=== PATIENT | female | born 1940 | race Caucasian/White ===

== ENCOUNTER 2019-01-07 11:31 | Emergency (ER) | payer OTHER, MEDICAID ==
[~2019-01-07] VITALS: Ht 170.2 cm; Wt 93.0 kg
[2019-01-07] MEDS ORDERED: FOSAMAX 70 MG T70 MG PO (11:42)
[2019-01-07] MEDS ORDERED: LASIX 40 MG TAB40 M2 PO (11:42)
[2019-01-07] MEDS ORDERED: LOPRESSOR50 PO (11:42)
[2019-01-07] MEDS ORDERED: BENAZEPRIL HCL20 MG PO (11:42)
[2019-01-07] MEDS ORDERED: FLEXERIL PO (11:43)
[2019-01-07] MEDS ORDERED: LIDODERM1 EACH TRANSDERM (11:43)
[2019-01-07] MEDS ORDERED: TYLENOL325 MG PO (11:43)
[2019-01-07] MEDS ORDERED: CARDIZEM CD120 MG PO (11:43)
[2019-01-07] MEDS ORDERED: MIRALAX17 GM PO (11:44)
[2019-01-07] MEDS ORDERED: MILK OF MA2400 MG/11 PO (11:44)
[2019-01-07] MEDS ORDERED: VITAMINC500 PO (11:44)
[2019-01-07] MEDS ORDERED: NORCO 10-325 T1 EACH PO (11:45)
[2019-01-07] MEDS ORDERED: IPRATROPIU0.2 MG/1 M INH (11:45)
[2019-01-07] MEDS ORDERED: COUMADIN 4 MG TA4 M1 PO (11:45)
[2019-01-07 12:08] LABS: ABSOLUTE EOSINOPHILS 0.1 thou/uL (0.0-0.7); ABSOLUTE LYMPHOCYTES 1.2 thou/uL (0.8-5.3); ABSOLUTE MONOCYTES 0.7 thou/uL (0.0-1.2); ABSOLUTE NEUTROPHILS 8.8 thou/uL (1.6-8.1); BASOPHILS 0.3 %; EOSINOPHILS 0.7 %; HEMATOCRIT 35.8 % (37.0-47.0); HEMOGLOBIN 11.8 gm/dL (12.0-15.0); LYMPHOCYTES 10.8 %; MCH 32.4 pg (26.0-34.0); MONOCYTES 6.6 %; MPV 6.5 fl. (7.2-11.1); NUCLEATED RBCS 0 /100WBC; PLATELET COUNT* 361 thou/uL (150-400); POLYS 81.6 %; RBC 3.65 mil/uL (4.20-5.00); RDW-CV 16.8 % (10.5-14.5); WBC 10.7 thou/uL (4.0-11.0)
[2019-01-07 12:24] LABS: APTT 39.6 Seconds (25.0-31.3); INR 2.6; PROTIME 26.3 Seconds (9.20-11.50)
[2019-01-07 12:27] LABS: ALBUMIN 3.1 g/dL (3.4-5.0); CREATININE 1.2 mg/dL (0.6-1.3); POTASSIUM 4.4 mmol/L (3.5-5.1); TOTAL BILIRUBIN 0.3 mg/dL (<0.1-1.0); TOTAL PROTEIN 6.7 g/dL (6.4-8.2)
[2019-01-07 14:00] VITALS: BP 125/82
== END 2019-01-07 14:57 | disposition home or self-care (01) ==
LOC: M.ERS 11:31
PROVIDERS: Physician Assistant
DX: S09.8XXA Other specified injuries of head, initial encounter (principal); E86.0 Dehydration; I10 Essential (primary) hypertension; I48.91 Unspecified atrial fibrillation; Z88.2 Allergy status to sulfonamides; Z88.8 Allergy status to other drugs, medicaments and biological substances; W01.0XXA Fall on same level from slipping, tripping and stumbling without subsequent striking against object, initial encounter; Y93.89 Activity, other specified; Y92.89 Other specified places as the place of occurrence of the external cause; Y99.8 Other external cause status

== ENCOUNTER 2019-10-09 12:45 | Inpatient (IN) | payer OTHER, MEDICAID ==
[~2019-10-09] VITALS: Ht 170.2 cm; Wt 95.3 kg
[~2019-10-09 12:45] MED LIST: BENAZEPRIL HCL20 MG PO; CARDIZEM CD120 MG PO; COUMADIN 2.5MG2.5 M1 PO; FLEXERIL PO; FOSAMAX 70 MG T70 MG PO; IPRATROPIU0.2 MG/1 M INH; LASIX 40 MG TAB40 M2 PO; LIDODERM1 EACH TRANSDERM; METOPROLOL TA37.5 MG PO; MILK OF MA2400 MG/11 PO; MIRALAX17 GM PO; NORCO 5-325 TA1 EAC1 PO; TYLENOL325 MG PO; VITAMINC500 PO
[2019-10-09 12:47] VITALS: BP 96/42
[2019-10-09] MEDS ORDERED: ZOFRAN4 MG PO (12:52)
[2019-10-09] MEDS ORDERED: MELATONIN10 M3 PO (12:54)
[2019-10-09] MEDS ORDERED: COUMADIN 1MG TAB1 M1 PO (12:56)
[2019-10-09] MEDS ORDERED: SINGULAIR 10 MG10 MG PO (12:56)
[2019-10-09 13:59] LABS: ABSOLUTE BASOPHILS 0.1 thou/uL (0.0-0.2); ABSOLUTE LYMPHOCYTES 1.5 thou/uL (0.8-5.3); ABSOLUTE MONOCYTES 0.8 thou/uL (0.0-1.2); ABSOLUTE NEUTROPHILS 10.7 thou/uL (1.6-8.1); BASOPHILS 0.5 %; EOSINOPHILS 0.1 %; HEMATOCRIT 42.7 % (37.0-47.0); HEMOGLOBIN 14.2 gm/dL (12.0-15.0); LYMPHOCYTES 11.2 %; MCH 32.1 pg (26.0-34.0); MCHC 33.1 g/dL (28.0-37.0); MCV 96.8 fL (80.0-100.0); MONOCYTES 6.3 %; MPV 7.6 fl. (7.2-11.1); NUCLEATED RBCS 0 /100WBC; PLATELET COUNT* 293 thou/uL (150-400); POLYS 81.9 %; RBC 4.42 mil/uL (4.20-5.00); RDW-CV 13.7 % (10.5-14.5)
[2019-10-09 14:09] LABS: INR 2.3; PROTIME 22.8 Seconds (9.20-11.50)
[2019-10-09 14:10] LABS: CALCIUM 9.3 mg/dL (8.5-10.1); CREATININE 1.2 mg/dL (0.6-1.3); POTASSIUM 4.4 mmol/L (3.5-5.1)
[2019-10-09 14:21] LABS: ALBUMIN 3.5 g/dL (3.4-5.0); TOTAL BILIRUBIN 0.5 mg/dL (<0.1-1.0); TOTAL PROTEIN 7.3 g/dL (6.4-8.2)
--- NOTE | 2019-10-09 15:42 | EKG ---
[place] [address] ELECTROCARDIOGRAM REPORT Name: DXAA MARIE Room: [place] [address] ADM IN M.R.#: [id number] Admission: 10/09/19 Attend Phys: Sunil Servin MD Discharge: Date of : 38 Report #: [id number] THIS REPORT FOR: //name// [facility] ED Test Date: 2019-10-09 Test Time: 12:55:19 Pat Name: DAXA MARIE Department: Room: [facility] Gender: F Buttonholer: [facility] : 1940 Requested By: Sudhir Taveras Order Number: [id number] MD: Mak Pride Measurements Intervals [place] Rate: 81 P: AR: QRS: -35 QRSD: 128 T: 47 QT: 394 QTc: 458 Interpretive Statements Atrial fibrillation Left bundle branch block No previous ECG available for comparison Electronically Signed On 10-09-2019 15:42:24 EXECUTIVE RELATIONS SPECIALIST by Mak Pride [email or web address] <ELECTRONICALLY SIGNED> By: Mak Pride MD, [facility] 10/09/19 1542 [id number] Mak Pride MD, FACC /EPI
[2019-10-09 16:24] LABS: URINE BILIRUBIN NEGATIVE (Negative); URINE BLOOD NEGATIVE (Negative); URINE CLARITY CLEAR; URINE COLOR YELLOW; URINE GLUCOSE-RANDOM NEGATIVE (Negative); URINE KETONES NEGATIVE (Negative); URINE LEUKOCYTES-REFLEX 2+ (Negative); URINE NITRITE-REFLEX POSITIVE (Negative); URINE PROTEIN NEGATIVE (Negative); URINE SPECIFIC GRAVITY 1.015 (1.005-1.030); URINE UROBILINOGEN 0.2 E.U./dl (0.2-1.0)
[2019-10-09 16:35] VITALS: BP 122/82
[2019-10-09 16:38] LABS: SQUAMOUS 0-3 Few /LPF (0-3)
[2019-10-09 16:39] LABS: BACTERIA-REFLEX >30 Many /HPF (None Seen); URINE RBC 0-2 Rare /HPF (0-2); URINE WBC-REFLEX 6-15 Few /HPF (0-5)
[2019-10-09 16:40] LABS: CASTS None Seen /LPF (None Seen); CRYSTALS None Seen /LPF (None Seen); MUCUS None Seen strn/LPF (None Seen)
--- NOTE | 2019-10-09 17:11 | NUR ---
SOON PT BROUGHT TO UNIT MRI CAME TO GET PT FOR STAT MRI. MRI SCREENING FORM COMPLETED BY LAUREN PADRON FROM MRI. PT OFF UNIT.
--- NOTE | 2019-10-09 18:05 | NUR ---
PT RETURN ROM MRI.
--- NOTE | 2019-10-09 18:25 | NUR ---
CALLED DR. GRIMES TO INFORM OF MRI COMPLETED AND NIH SCORE.
--- NOTE | 2019-10-09 18:40 | NUR ---
PT HAS ONLY THE SLIGHTEST OF UNEVINESS WHEN SMILING. PT PASSED PAULETTE SWALLOW EVALUATION.
[2019-10-09 20:00] VITALS: BP 143/74
[2019-10-10] VITALS: BP 123/86
--- NOTE | 2019-10-10 00:36 | NUR ---
PT GIVEN MEDS CRUSHED IN APPLE SAUCE. PT IMMEDIATELY BEGAN TO CHOKE. SUCTION AT BEDSIDE. PT REPORTS FEELING BETTER. VSS. LS REMAIN THE SAME INITIAL ASSESSMENT. PORTABLE CXR ORDERED FOR AM. WCTM CLOSELY
[2019-10-10 04:00] VITALS: BP 156/102
--- NOTE | 2019-10-10 05:04 | NUR ---
PT IS RESTING COMFORTABLY AT THIS TIME. LS STILL UNCHANGED ON RA. AFIB ON THE MONITOR HR BETWEEN 100-127. PT IS STILL DROWSY BUT ABLE TO REPSPOND WHEN SPOKE TO. WILL CONTINUE TO MONITOR.
[2019-10-10 05:09] LABS: ABSOLUTE MONOCYTES 0.9 thou/uL (0.0-1.2); ABSOLUTE NEUTROPHILS 10.4 thou/uL (1.6-8.1); BASOPHILS 0.2 %; EOSINOPHILS 0.2 %; HEMATOCRIT 43.9 % (37.0-47.0); HEMOGLOBIN 14.8 gm/dL (12.0-15.0); LYMPHOCYTES 15.1 %; MCH 32.7 pg (26.0-34.0); MCHC 33.7 g/dL (28.0-37.0); MCV 96.9 fL (80.0-100.0); MPV 7.1 fl. (7.2-11.1); NUCLEATED RBCS 0 /100WBC; PLATELET COUNT* 308 thou/uL (150-400); POLYS 77.5 %; RBC 4.53 mil/uL (4.20-5.00); RDW-CV 13.4 % (10.5-14.5); WBC 13.4 thou/uL (4.0-11.0)
[2019-10-10 05:21] LABS: CHOLESTEROL 180 mg/dL (<200); HDL CHOLESTEROL 44 mg/dL (>40); LDL CHOLESTEROL 120 mg/dL (<100); TC:HDL 4.1 Ratio (Not establshd); TRIGLYCERIDE 82 mg/dL (<150); VLDL 16 mg/dL (<40)
[2019-10-10 05:22] LABS: SERUM ASSESSMENT Clear
[2019-10-10 05:27] LABS: MAGNESIUM 1.8 mg/dL (1.8-2.4)
--- NOTE | 2019-10-10 05:40 | NUR ---
PT HAS HAD TELEMETRY LEADS REPLACED 3XS. PT IS CONFUSED AND IS CONTINUING TO REMOVE LEADS.
[2019-10-10 05:42] LABS: INR 2.5; PROTIME 25.2 Seconds (9.20-11.50)
[2019-10-10 07:20] LABS: ESR (SEDRATE) 30 mm/hr (0-30)
[2019-10-10 08:17] VITALS: BP 155/95
[2019-10-10 12:00] VITALS: BP 152/100
--- NOTE | 2019-10-10 13:05 | NUR ---
VSS, ASSUMED CARE IN THE AM, ASSESSMENT PERFORMED AND CHARTED, FALL PRECAUTIONS IN PLACE AND CALL LIGHT IN REACH, PT IS AFIB ON MONITOR RA AND IS UP WITH 2 ASSIST, PT HAS SHOULDER PAIN, PT GOAL IS TO WORK WITH PT/OT/SP COMPLETE SWALLOW, WILL FOLLOW WITH PLAN OF CARE.
--- NOTE | 2019-10-10 15:03 | NUR ---
Pt out of the room when CM went to assess, will f/u later
[2019-10-10 16:00] VITALS: BP 154/90
--- NOTE | 2019-10-10 16:28 | 2DMMODE ---
[place] [address] 2 D/M-MODE ECHOCARDIOGRAM Name: DAXA MARIE Room: [address] IN [facility]#: [id number] Admission: 10/09/19 Attend Phys: Sunil Servin MD Discharge: Date of : 38 Date of Service: 10/10/19 1627 Report #: [id number] THIS REPORT FOR: //name// APPROVED REPORT Study performed: 10/10/2019 10:28:21 EXAM: Comprehensive 2D, Doppler, and color-flow Echocardiogram Patient Location: In-Patient Room #: [facility] Status: routine BSA: 2.02 HR: 124 bpm BP: 155/95 mmHg Rhythm: Atrial Fibrillation Other Information Study Quality: Good Indications CVA/TIA Atrial Fibrillation Echo Enhancing Agent Indication: Rule out Shunt Agent(s) / Amount(s) Used: Agitated Saline 10 cc 2D Dimensions IVSd: 17.31 (7-11mm) LVOT Diam: 20.00 (18-24mm) LVDd: 40.38 mm PWd: 11.73 (7-11mm) Ascending Ao: 36.84 (22-36mm) LVDs: 21.73 (25-40mm) Aortic Root: 35.05 mm Volumes Left Atrial Volume (Systole) LA ESV Index: 57.60 mL/m2 Aortic Valve AoV Peak Dustin.: 1.31 m/s AO Peak Gr.: 6.89 mmHg LVOT Max P.03 mmHg AO Mean Gr.: 3.94 mmHg LVOT Mean P.66 mmHg LVOT Max V: 0.87 m/s AO V2 VTI: 18.83 cm LVOT Mean V: 0.59 m/s BRUCE (VTI): 2.21 cm2 LVOT V1 VTI: 13.23 [place] [address] 2 D/M-MODE ECHOCARDIOGRAM Name: DAXA MARIE Room: [address] IN .R.#: [id number] Admission: 10/09/19 Attend Phys: Sunil Servin MD Discharge: Date of : 38 Date of Service: 10/10/19 1627 Report #: [id number] Pulmonary Valve PV Peak Dustin.: 1.09 m/s PV Peak Gr.: 4.73 mmHg Tricuspid Valve RAP Estimate: 5.00 mmHg TR Peak Gr.: 34.13 mmHg RVSP: 39.00 mmHg PA Pressure: 39.00 mmHg Left Ventricle The left ventricle is normal size. There is normal LV segmental wall motion. Mild to moderate concentric left ventricular hypertrophy. Left ventricular systolic function is normal. LVEF is 60-65%. This study is not technically sufficient to allow evaluation of the LV diastolic function due to atrial fibrillation. Right Ventricle The right ventricle is normal size. The right ventricular systolic function is normal. Atria Left atrium is severely dilated. Interatrial septum is intact without evidence of ASD or PFO. Right atrium is mildly dilated. Aortic Valve Mild aortic valve sclerosis. No aortic regurgitation is present. There is no aortic valvular stenosis. Mitral Valve There is mitral annular calcification. Trace mitral regurgitation. No evidence of mitral valve stenosis. Tricuspid Valve The tricuspid valve is normal in structure. Mild tricuspid regurgitation. The RVSP is 50-55 mmHg. Pulmonic Valve The pulmonary valve is normal in structure. There is no pulmonic valvular regurgitation. Great Vessels The aortic root is normal in size. IVC is normal in size and collapses >50% with inspiration. Pericardium There is no [place] [address] 2 D/M-MODE ECHOCARDIOGRAM Name: DAXA MARIE Trevor Room: [address]#: [id number] Admission: 10/09/19 Attend Phys: Sunil Servin MD Discharge: Date of : 38 Date of Service: 10/10/19 1627 Report #: [id number] <Conclusion> The left ventricle is normal size. Mild to moderate concentric left ventricular hypertrophy. Left ventricular systolic function is normal. LVEF is 60-65%. This study is not technically sufficient to allow evaluation of the LV diastolic function due to atrial fibrillation. Interatrial septum is intact without evidence of ASD or PFO. Left atrium is severely dilated. Right atrium is mildly dilated. Trace mitral regurgitation. Mild tricuspid regurgitation. The RVSP is 50-55 mmHg. IVC is normal in size and collapses >50% with inspiration. <ELECTRONICALLY SIGNED> By: Arron Christina MD, FACC 10/10/19 1627 [id number] Arron Christina MD, FACC /INF
[2019-10-10 20:00] VITALS: BP 143/74
[2019-10-11] VITALS: BP 137/94
[2019-10-11 02:06] LABS: GLYCOHEMOGLOBIN (HGB A1C) 6.2 % (4.8-5.6)
[2019-10-11 04:00] VITALS: BP 144/99
[2019-10-11 05:03] LABS: ABSOLUTE LYMPHOCYTES 1.4 thou/uL (0.8-5.3); ABSOLUTE MONOCYTES 1.2 thou/uL (0.0-1.2); ABSOLUTE NEUTROPHILS 8.9 thou/uL (1.6-8.1); BASOPHILS 0.3 %; EOSINOPHILS 0.4 %; HEMATOCRIT 44.8 % (37.0-47.0); HEMOGLOBIN 14.8 gm/dL (12.0-15.0); MCH 32.1 pg (26.0-34.0); MCHC 32.9 g/dL (28.0-37.0); MCV 97.5 fL (80.0-100.0); MONOCYTES 10.1 %; MPV 7.3 fl. (7.2-11.1); NUCLEATED RBCS 0 /100WBC; PLATELET COUNT* 267 thou/uL (150-400); POLYS 77.2 %; RDW-CV 13.5 % (10.5-14.5); WBC 11.6 thou/uL (4.0-11.0)
[2019-10-11 05:14] LABS: INR 2.8; PROTIME 27.5 Seconds (9.20-11.50)
[2019-10-11 05:17] LABS: CALCIUM 8.9 mg/dL (8.5-10.1); CREATININE 1.1 mg/dL (0.6-1.3); POTASSIUM 3.9 mmol/L (3.5-5.1)
--- NOTE | 2019-10-11 05:35 | NUR ---
PT IS LETHARGIC, OX2. 2L O2 NC. AFIB ON MONITOR WITH ELEVATED HR ON CARDIZEM GTT. PT IS NPO.HOB ELEVATED. NS AT 50. PT IS INCONTINENT OF BLADDER. DAUGHTER IS AT BEDSIDE. HOURLY ROUNDING. CALL LIGHT IN REACH
[2019-10-11 07:00] VITALS: BP 136/86
--- NOTE | 2019-10-11 09:25 | NUR ---
INITAL ASSESSMENT COMPLETED CHARTED. VSS. NIH=12. TRACING AFIB ON MONITOR. SEE COMPUTER CHARTING FOR FURTHER DETAIL. Q2 TURNS FOR SKIN INTEGRITY. HOURLY ROUNDING AND FALL PRECAUTIONS IN PLACE FOR PT SAFETY. CLWR. FAMILY AT BEDSIDE
[2019-10-11 11:48] VITALS: BP 145/86
--- NOTE | 2019-10-11 15:44 | NUR ---
CM spoke with son in room. Pt is resides at [facility]. Pt primarily uses a wc, but also has a walker. Meals and cleaning provided. Acute rehab consult placed. Following.
[2019-10-11 17:03] VITALS: BP 135/75
[2019-10-11 20:00] VITALS: BP 154/55
[2019-10-12] VITALS: BP 135/76
[2019-10-12 04:00] VITALS: BP 150/77
[2019-10-12 05:46] LABS: INR 2.9; PROTIME 28.3 Seconds (9.20-11.50)
[2019-10-12 08:00] VITALS: BP 157/89
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
--- NOTE | 2019-10-12 10:08 | NUR ---
MIDLINE CATHETER LINE INSERTED BY INFUSION NURSE PER DR ORDER. D5W AND IV ABX ADMINISTERED. MOUTH CARE GIVEN TO PT BY THIS NURSE WITH HOB ELEVATED AT 90 DEGREE. PT LEFT FLOOR AT 1009 FOR MRI. WILL CONITINUE TO MONITOR
--- NOTE | 2019-10-12 10:16 | NUR ---
CCONSULTED FOR MIDLINE. RIGHT UPPER ARM ASSESSED WITH ULTRASOUND AND CEPHALIC IDENTIFIED AND MARKED. 8CM MIDLINE PLACED PER PROTOCOL. GOOD BRISK BLOOD RETURN AND EASY FLUSH. LINE SECURED AND RELEASED FOR USE. ARM 44CM AT INSERTION SITE.
[2019-10-12 12:17] VITALS: BP 132/92
--- NOTE | 2019-10-12 13:36 | CON ---
[address] [address] CONSULTATION Name: DAXA MARIE Room: [address] IN M.R.#: [id number] Admission: 10/09/19 Attend Phys: Sunil Servin MD Discharge: Date of : 39 Report #: [id number] THIS REPORT FOR: //name// CC: Pj Servin DATE OF SERVICE: 10/10/2019 HISTORY OF PRESENT ILLNESS: This is an 79-year-old female patient who was seen by me this morning. I talked to Dr. Servin subsequently. This patient lives in [place]. The reason she lives in [place] is because of ambulation difficulty. Her mentation was rather okay according to the son. She has a known history of anticoagulation. She has taken Coumadin for a long time. From last several days, she did not take Coumadin. It is not clear how long she did not take Coumadin, but it is at least last several days. When she came in, her INR was still 2.3, which is at the lower level and looks like she had multiple strokes. The strokes are in the distribution of the posterior cerebral artery as well as posterior inferior cerebellar artery. So far, there is no evidence of hydrocephalus. She had two imaging studies of the vessels and none of them are of optimal quality. It does show occlusion of both posterior cerebral artery, which is unusual, but I am not sure about rest of the vessels. Anterior circulation looks intact. REVIEW OF SYSTEMS: Indicates that this patient has a history of atrial fibrillation. I do not know what her INR runs in the baseline. I am trying to get that records from the [place]. She does have a history of hypertension, CHF, and arthritis. She denies any history for vision problem, although she did not do very well on my examination on her vision. She does have a history of hypertension. She denies any ENT, cardiac or respiratory symptoms. She did have some nausea. She denies any , musculoskeletal, constitutional, dermatological, hematological, psychiatric, throat, allergic symptom associated with present symptomatology. PAST MEDICAL HISTORY: Positive for atrial fibrillation. FAMILY HISTORY: Negative for any early age stroke. SOCIAL HISTORY: She lives in [place]. PHYSICAL EXAMINATION: Indicates that she is alert. She is responsive. Her memory and fund of knowledge looks poor. I tried to do the cranial nerve examination. I do not know what her baseline is, but she did not do very well with the visual field. She does appear to be somewhat weak on the right side. She said she can feel the sensation. Tone looks symmetrical. She does not have any cerebellar sign. I could not look at the patient's fundus. 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 She has no thyroid mass, no carotid bruit. Pulses are palpable. She does have atrial fibrillation. No respiratory difficulty or rhonchi was noticed. Blood pressure is 128/90, respiration is 19, pulse is 96, temperature is 98.5. LABORATORY DATA: Her white count is 13.4 and is elevated to some extent. Her GFR is 53. Her MRIs and CT angiogram is reviewed and is described as above. 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 This happened in spite of being on anticoagulation. She is not any TPA or any interventional candidate and probably never was. The question is why she has CVA in spite of anticoagulation. I suspect that she was more anticoagulated and the level of anticoagulation went down after she did not take the Coumadin, but still she had the stroke even after being on INR of 2.3, which is unusual, but can occur. I will await the other testing. We will get the record from [place] and then talk to her about her other options. <ELECTRONICALLY SIGNED> By: Oneil Jin MD 10/12/19 1336 [id number] 10Oneil Jin MD /nt
--- NOTE | 2019-10-12 14:21 | NUR ---
CM spoke with Pt's dtr, clarified that Pt is actually a LTC resident at [facility], but has been on the [facility] wait list. CM explained that Pt will be eligible for skilled not acute rehab. Dtr in agreement with POC. Updated Rosy at [facility] and faxed referral info
[2019-10-12 16:27] VITALS: BP 148/76
--- NOTE | 2019-10-12 16:27 | NUR ---
pt remains npo during shift. occupational therapy and physical therapy worked with pt today. pt has had poor urine putput during the day. pt was bladder scanned at 1630 residualt of 999cc of urine on scan. nurse required a straight cath order from will continue to monitor.
--- NOTE | 2019-10-12 19:03 | NUR ---
VICTOR HUGOELY CATHETER INSERTED AT 1900 ORDERED
[2019-10-12 20:00] VITALS: BP 149/89
[2019-10-13] VITALS: BP 159/94
[2019-10-13 04:00] VITALS: BP 149/85
--- NOTE | 2019-10-13 05:04 | NUR ---
PT ALERT AND ABLE TO MAKE NEEDS KNOWN. DOES HAVE SOME CONFUSION AND KEPT ASKING DAUGHTER TO LEAVE BUT DAUGHTER WAS GOOD ABOUT REASSURANCE TO PT. NO C/O PAIN NOTED. DOES HAVE WET GURGLE REQUIRING FREQUENT SUCTIONING. MOUTH CARE PREFORMED FOR DRINESS. DAUGHTER AT BEDSIDE, PT CURRENTLY ASLEEP WITH BED ALRAM ON AND CALL LIGHT WITHIN REACH.
[2019-10-13 05:19] LABS: INR 3.3; PROTIME 32.5 Seconds (9.20-11.50)
[2019-10-13 08:00] VITALS: BP 138/69
--- NOTE | 2019-10-13 10:24 | NUR ---
ASSUMED PT CARE, REPORT RECEIVED FROM NURSE. PT IS AOX3, LYING IN BED. VSS. CARDIZEM DRIP INFUSING AT 20 CC PER HOUR. IV FLUID INFUSING AT 80 CC PER HOUR. IV ROCEPHIN GIVEN. ASA SUPP APPLIED. LIDOCAINE PATCH O LEFT SHOULDER. Q2TURN. ACCUCHECK. MALLORY PATENT. NPO STATUS MAINTAINED. CALL LIGHT AT REACH. NO COMPLAINT. WILL CONITNUE TO MONITOR
[2019-10-13 10:31] LABS: ALBUMIN 2.9 g/dL (3.4-5.0); CALCIUM 8.7 mg/dL (8.5-10.1); POTASSIUM 3.9 mmol/L (3.5-5.1); TOTAL BILIRUBIN 0.5 mg/dL (<0.1-1.0); TOTAL PROTEIN 6.5 g/dL (6.4-8.2)
[2019-10-13 12:05] VITALS: BP 134/76
[2019-10-13 16:11] VITALS: BP 158/74
[2019-10-13 20:00] VITALS: BP 137/57
[2019-10-14] VITALS: BP 143/76
[2019-10-14 04:00] VITALS: BP 150/98
--- NOTE | 2019-10-14 04:47 | NUR ---
PT HAS BEEN ABLE TO COUGH AND CLEAR DRAINAGE AND IS SOUNDING MUCH BETTER. DID HAVE A COUPLE OF EPISODES OF DE-SATS INTO THE 80'S WHICH REQUIRED RE-POSITIONING, COACHING TO COUGH AND SUCTIONING WITH IMPROVMENT BACK INTO THE 90'S. R FA IV NO LONGER WORKING, INSERTED NEW IV TO L WRIST. NO C/O PAIN NOTED BY PT. BED ALRAM ON AND CALL LIGHT WITHIN REACH, DAUGHTER AT BEDSIDE.
[2019-10-14 05:35] LABS: ABSOLUTE LYMPHOCYTES 0.9 thou/uL (0.8-5.3); ABSOLUTE MONOCYTES 1.1 thou/uL (0.0-1.2); ABSOLUTE NEUTROPHILS 10.9 thou/uL (1.6-8.1); BASOPHILS 0.2 %; EOSINOPHILS 0.1 %; HEMATOCRIT 44.5 % (37.0-47.0); HEMOGLOBIN 14.3 gm/dL (12.0-15.0); LYMPHOCYTES 6.8 %; MCHC 32.2 g/dL (28.0-37.0); MCV 99.5 fL (80.0-100.0); MONOCYTES 8.5 %; MPV 7.9 fl. (7.2-11.1); NUCLEATED RBCS 0 /100WBC; PLATELET COUNT* 246 thou/uL (150-400); POLYS 84.4 %; RBC 4.47 mil/uL (4.20-5.00); RDW-CV 13.3 % (10.5-14.5); WBC 12.9 thou/uL (4.0-11.0)
[2019-10-14 05:44] LABS: ALBUMIN 2.8 g/dL (3.4-5.0); CALCIUM 8.6 mg/dL (8.5-10.1); TOTAL BILIRUBIN 0.6 mg/dL (<0.1-1.0); TOTAL PROTEIN 6.6 g/dL (6.4-8.2)
[2019-10-14 05:48] LABS: PROTIME 83.7 Seconds (9.20-11.50)
[2019-10-14 05:51] LABS: INR 8.8
[2019-10-14 06:19] LABS: PROTIME 38.1 Seconds (9.20-11.50)
[2019-10-14 06:23] LABS: INR 3.9
[2019-10-14 08:00] VITALS: BP 121/50
[2019-10-14 12:00] VITALS: BP 143/83
--- NOTE | 2019-10-14 12:10 | NUR ---
ASSUMED PT CARE REPORT RECEIVED FROM NURSE PT IS AOX3, LYING IN BED, SUCTIONNG PERFORMED. ON 5 L NC. O2 SATURATION IS 100%. OXYGEN DECREASED TO 4 L NC, TO APPROACH HOME OXYGEN LEVEL. O2 SAT AT 4 L NC IS 98%. VSS. EXCEPT INCREASED HR IN 140S. CARDIOLOGY CONSULTED. CARDIO STOPPED CARDIZEM DIRP WHICH WAS SLOWLY TITRATED BY NURSE UNTIL STOPPED. THEN DIGOXIN AND METOPROLOL GIVNE NEEDED. PT TRACING AFIB ON LOTUS NOTES DEVELOPER. WILL MONITOR HR THROUGHOUT THE SHIFT. Q2TURN. HOB ELEVATED AT 60% OR MORE AT ALL TIME. NPO STATUS MAINTAINED. INR 3.9 , HOSPITALIST AWARE. CARDIO AGREES TO GIVEN DOSE OF VIT K TO PREP PT FOR PEG TUBE PLACEMENT TOMORROW . WILL COMMUNICATE CARDIO INPUT TO HOSPITALIST. PT HAS A TEMP AT 1200. TYLENOL SUPP ORDERED WILL GIVE. IV FLUID INFUSING AT 80 PER HOUR. IV ABX GIVEN. CALL LIGHT AT REACH. WILL CONTINUE TO MONITOR
[2019-10-14 13:40] LABS: INR 3.6; PROTIME 35.5 Seconds (9.20-11.50)
--- NOTE | 2019-10-14 14:08 | NUR ---
VITAMIN K GIVEN AT 1350 SCHEDULE. TYLENOL SUPP GIVEN FOR HIGH TEMP OF 101
--- NOTE | 2019-10-14 18:43 | NUR ---
PT MORE LETHARGIC AND LESS INTERACTIVE TODAY. STAT CT OF HEAD ORDERED. NO ACUTE BLEEDING, REMAINS AFIB ON HOSPITAL CODER HEART RATE 120S. METOPROLOL AND DIGOXIN GIVEN SCHEDULED.
[2019-10-14 20:00] VITALS: BP 174/103
[2019-10-15] VITALS (35 sets, daily range): BP systolic 105–178; BP diastolic 56–149
[2019-10-15 01:04] LABS: BE 2.5 mmol/L (-2 to +3); PO2 68.8 mmHg (75.0-100.0)
--- NOTE | 2019-10-15 01:05 | NUR ---
PT TEMPERATURE REMAINS ELEVATED PER AXILLARY. AWAITING TYLENOL SUPPOSITORY, AIDE PLACED COOL RAG OVER HEAD AND REMOVED BLANKETS TO COOL PT.
[2019-10-15 01:17] LABS: PCO2 83.7 mmHg (35.0-45.0)
--- NOTE | 2019-10-15 02:00 | NUR ---
PT TRANSFERRED TO ICU PER ORDER BY PHYSICIAN. PT O2 SATURATION MAINTAINED AT 88% DESPITE SUCTIONING AND HI FLOW NC. RT PLACED PT ON 60L HEATED/HUMIDIFIED AND BROUGHT O2 UP TO 93% ORDER OBTAINED FOR STAT ABG. ABG CRITICAL RESULTS CALLED TO PHYSICIAN WO ORDERED CONSULTATION WITH [facility], TRANSFER TO ICU AND POSSIBLE INTUBATION. PT TRANSFERRED TO ICU AND PLACED ON BIPAP. REPORT,CHART AND MEDS GIVEN TO ROSSY RN/ICU WITHOUT FURTHER QUESTIONS.
--- NOTE | 2019-10-15 03:29 | NUR ---
RECIEVED PT FROM TELE AND PUT PT TO ROOM 3.CONNECTED TO TRANSLATOR DEAF WITH AFIB,HR AT 120BPM.CARDIZEM STARTED AT 10MG/HR.TALKED TO DTR AND SAID NO EXTRA MEASURE IF PT ARREST LIKE CPR.DTR SAID PT DOESN'T WANT CPR.DTR AGREED FOR INTUBATION ONLY IF NEEDED AND PROGNOSIS IS GOOD.CONNECTED TO BIPAP AT 100%.ABDOMINAL DISTENTION NOTED,NGT INSERTED.UPDATE GIVEN TO DTR AND SON.
[2019-10-15 04:08] LABS: BE -0.7 mmol/L (-2 to +3); PO2 117.2 mmHg (75.0-100.0)
[2019-10-15 04:09] LABS: pH 7.299 (7.340-7.450)
[2019-10-15 06:01] LABS: HEMATOCRIT 46.2 % (37.0-47.0); HEMOGLOBIN 14.6 gm/dL (12.0-15.0); MCH 31.9 pg (26.0-34.0); MCHC 31.7 g/dL (28.0-37.0); MCV 100.7 fL (80.0-100.0); NUCLEATED RBCS 0 /100WBC; PLATELET COUNT* 200 thou/uL (150-400); RBC 4.59 mil/uL (4.20-5.00); WBC 14.4 thou/uL (4.0-11.0)
[2019-10-15 06:13] LABS: CALCIUM 8.9 mg/dL (8.5-10.1); CREATININE 1.6 mg/dL (0.6-1.3); POTASSIUM 4.3 mmol/L (3.5-5.1)
[2019-10-15 06:18] LABS: ALBUMIN 2.6 g/dL (3.4-5.0); TOTAL BILIRUBIN 0.6 mg/dL (<0.1-1.0); TOTAL PROTEIN 6.7 g/dL (6.4-8.2)
[2019-10-15 06:27] LABS: INR 2.2; PROTIME 21.5 Seconds (9.20-11.50)
[2019-10-15 06:39] LABS: ABSOLUTE LYMPHOCYTES 1.4 thou/uL (0.8-5.3); ABSOLUTE MONOCYTES 0.1 thou/uL (0.0-1.2); ABSOLUTE NEUTROPHILS 12.8 thou/uL (1.6-8.1); METAMYELOCYTES 1 %; PLATELET ESTIMATE ADEQUATE
--- NOTE | 2019-10-15 06:59 | NUR ---
ABG RESULT INFORMED HIMS,PT FOR INTUBATION BUT DPOA(SON) DARRIN AND DTR REFUSED.TO BE CLARIFY WELL WHAT WILL BE THE CODE STATUS.CT HEAD DONE.CARDIZEM DRIP HOLD, HR 90'S TO 100'S.
--- NOTE | 2019-10-15 11:45 | NUR ---
ICU rounds: Continue care for a few more days, reassess on Tuesday. Pt on bipap. Pt made a DNR, intibate pending prognosis. Tube feeds started. Nephro and ID consulted. Pt satting fine, working to titrate o2. Comfortable, but drowsy. Pt not opening eyes. Following.
[2019-10-15 13:36] LABS: BE 0.1 mmol/L (-2 to +3); PCO2 42.5 mmHg (35.0-45.0); PO2 89.3 mmHg (75.0-100.0)
[2019-10-15 15:31] LABS: INR 1.5; PROTIME 14.7 Seconds (9.20-11.50)
[2019-10-15 16:17] LABS: BE -1.1 mmol/L (-2 to +3); PCO2 41.1 mmHg (35.0-45.0); PO2 76.3 mmHg (75.0-100.0); pH 7.382 (7.340-7.450)
--- NOTE | 2019-10-15 16:24 | CON ---
[address] [address] CONSULTATION Name: FRANKDAXA R Room: [address] ADM IN M.R.#: [id number] Admission: 10/09/19 Attend Phys: Sunil Servin MD Discharge: Date of : 38 Report #: [id number] THIS REPORT FOR: //name// CC: Pj Servin DATE OF SERVICE: 10/14/2019 CARDIOLOGY CONSULTATION HISTORY OF PRESENT ILLNESS: The patient is an 79-year-old single white female, who I was asked to see in the hospital today because of atrial fibrillation. The history is obtained from the chart as well as her daughter who is present. The patient has a history of permanent atrial fibrillation. It initially started apparently in 2008 in [facility]. She apparently was cardioverted 3 times, but remained in AFib. It was decided to aim for rate control and anticoagulation. She has done well since that time. She apparently fractured her femur last year and had surgery. She has now been in [facility], undergoing rehabilitation. Apparently a week ago, she had difficulty with vision. She was brought here to [place]. She felt nauseated and lightheaded. She was felt to have a stroke. She was seen by Neurology. On admission, her INR was 2.3 and felt to be therapeutic. Her workup so far, she had an echocardiogram done last week that showed left ventricular hypertrophy, ejection fraction 60%. No evidence of a shunt, biatrial enlargement, mild mitral regurgitation. She did undergo extensive neuro workup, including MRA of the carotid arteries that showed no flow limiting stenosis. 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 MRI of the head showed acute infarction in multiple areas. Her chest x-ray on admission showed decreased aeration in the bases, heart size appeared prominent. LABORATORY WORK: Sodium 148, BUN 17, creatinine 1.0, glucose 130. Troponin 0.06. Cholesterol 180, triglycerides 82, HDL 44, LDL 120. After her admission, her INR actually went up to 8.8, it is now 3.9. White blood cell count of 12.9, hemoglobin 14.3. IMPRESSION AND RECOMMENDATIONS: 1. Permanent atrial fibrillation. Aim for rate control. The patient previously was on metoprolol and diltiazem. She is currently n.p.o. I therefore recommend IV metoprolol and IV digoxin to control the rate. I would hold anticoagulation at this time for PEG tube. 2. Previous history of warfarin. The patient currently being transitioned to novel oral anticoagulant. INR noted to be elevated. Prior to performing percutaneous endoscopic gastrostomy tube placement, I would consider either vitamin K or FFP. 3. Obesity. 4. Hypertension. The patient previously had been on an ROLAND inhibitor, [place] [address] CONSULTATION Name: DAXA MARIE Room: [address] IN [facility].#: [id number] Admission: 10/09/19 Attend Phys: Sunil Servin MD Discharge: Date of : 38 Report #: [id number] beta-juan antonio, calcium-juan antonio. 5. Hyperlipidemia. Because of her stroke, I would aim for an LDL of less than 100 using a statin drug. 6. Glucose intolerance. <ELECTRONICALLY SIGNED> By: Kem Roblero MD, [facility] 10/15/19 1624 [id number] [id number] Theresa Roblero MD, FACC /nt
--- NOTE | 2019-10-15 19:59 | NUR ---
PT GRIMACING TO PAIN, HARDLY OPENING HER EYES, NODS HER HEAD TO YES OR NO QUESTIONS. BIPAP SUPPORT CONTD, SETTINGS CHANGED PER TRAIN SYSTEM OPERATOR. PT IS DNR STATUS, FAMILY DISCUSSED WITH DR CUBA. TUBE FEEDING STARTED AT 20 MLS/HR, TOLERATING WELL. HEPARIN STARTED AT 1000 U/HR PER DR CUBA. VSS. EKG SHOWS A FIB/ SA. PT COUGHING THICK SECRETIONS, SUCTIONED AT TIMES. UOP-250 MLS.
[2019-10-16] VITALS (22 sets, daily range): BP systolic 111–188; BP diastolic 61–113
[2019-10-16 05:50] LABS: ABSOLUTE EOSINOPHILS 0.1 thou/uL (0.0-0.7); ABSOLUTE LYMPHOCYTES 1.1 thou/uL (0.8-5.3); ABSOLUTE MONOCYTES 0.8 thou/uL (0.0-1.2); ABSOLUTE NEUTROPHILS 8.4 thou/uL (1.6-8.1); BASOPHILS 0.4 %; HEMATOCRIT 38.2 % (37.0-47.0); LYMPHOCYTES 10.3 %; MCH 32.8 pg (26.0-34.0); MCHC 33.1 g/dL (28.0-37.0); MCV 99.2 fL (80.0-100.0); MPV 8.2 fl. (7.2-11.1); NUCLEATED RBCS 0 /100WBC; PLATELET COUNT* 169 thou/uL (150-400); POLYS 80.3 %; RBC 3.85 mil/uL (4.20-5.00); RDW-CV 13.5 % (10.5-14.5); WBC 10.5 thou/uL (4.0-11.0)
--- NOTE | 2019-10-16 05:53 | NUR ---
ASSUMED CARE AT 1900H, ON BIPAP AT 50%.PT COUGHED THEN VOMITED EARLY THIS MORNING.HOLD FEEDING AND PUT ON NC AND TOLERATED.PT NOW ON 5LPM AND NO DISTRESS.PT DOESN'T WANT TO BE TOUCH AND SHE'S SLAPPING AND KICKING US, EVERY NOW AND THEN WE ORIENT PT THEN SHE'S CALMER AND COOPERATIVE.NO BLEEDING AND STILL ON HEPARIN DRIP.CONTINUE MONITORING AND TOWARD GOALS.
[2019-10-16 06:05] LABS: BE 2.2 mmol/L (-2 to +3); PO2 96.9 mmHg (75.0-100.0); pH 7.328 (7.340-7.450)
[2019-10-16 06:07] LABS: PCO2 57.6 mmHg (35.0-45.0)
[2019-10-16 06:08] LABS: ALBUMIN 2.1 g/dL (3.4-5.0); CALCIUM 8.4 mg/dL (8.5-10.1); CREATININE 1.3 mg/dL (0.6-1.3); HEMOGLOBIN 12.6 gm/dL (12.0-15.0); POTASSIUM 3.5 mmol/L (3.5-5.1); TOTAL BILIRUBIN 0.6 mg/dL (<0.1-1.0); TOTAL PROTEIN 5.7 g/dL (6.4-8.2)
[2019-10-16 06:21] LABS: PREALBUMIN 10.1 mg/dL (18.0-35.7)
--- NOTE | 2019-10-16 06:27 | NUR ---
PT PULLED HER NGT.SHE MORE RESPONSIVE VERBALLY AND STRONGER.NGT NOT REINSERTED,PT MIGHT MOVE HER HEAD CONSTANTLY WHILE INSERTION AND SHE MIGHT PULL IT AGAIN.
[2019-10-16 06:50] LABS: INR 1.3; PROTIME 13.2 Seconds (9.20-11.50)
--- NOTE | 2019-10-16 07:57 | CON ---
[address] [address] CONSULTATION Name: FRANKDAXA Trevor Room: [address] ADM IN M.R.#: [id number] Admission: 10/09/19 Attend Phys: Sunil Servin MD Discharge: Date of : 38 Report #: [id number] THIS REPORT FOR: //name// CC: Pj Servin DATE OF SERVICE: 10/15/2019 INFECTIOUS DISEASE CONSULTATION ATTENDING PHYSICIAN: Dr. Riley. REASON FOR EVALUATION: Aspiration pneumonitis. HISTORY OF PRESENT ILLNESS: Chart reviewed, patient examined. This is an 79-year-old with history of hypertension, atrial fibrillation, presented on the 3rd with the left-sided facial droopiness, underwent evaluation, was ultimately found to have a posterior infarct. Since that time; however, she has deteriorated now and requires ICU level of care. Noted serial x-rays ultimately today showed diffuse pneumonitis suggestive of aspiration. At this point, she is on BiPAP. She is not responsive. Hemodynamically, she is not overtly unstable. She has had recent fevers as high as 101.9 earlier this morning. ALLERGIES: LISTED SULFA, GABAPENTIN. MEDICATIONS: Currently include vancomycin, diltiazem, digoxin, acetaminophen, metoprolol, Zosyn, famotidine, atorvastatin, aspirin, niacin, malic acid, ascorbic acid. PAST MEDICAL HISTORY: As described above, recent stroke, now with significant deficits, hypertension, atrial fibrillation, history of cardiomyopathy with history congestive heart failure, arthritis. SOCIAL HISTORY: Nonsmoker, no ethanol, no illicit drug use. FAMILY HISTORY: Noncontributory. REVIEW OF SYSTEMS: Not obtainable. PHYSICAL EXAMINATION: GENERAL: She is supine in Intensive Care Unit. She does have the BiPAP in place, really nonresponsive at this point. NECK: Appears to be supple. VITAL SIGNS: Temperature most recently 101.9, pulse 97, respirations 20, blood pressure 117/74. SKIN: Warm, dry, gets extensive contused areas both the upper extremities, [place] [address] CONSULTATION Name: DAXA MARIE Room: [address] IN [facility]#: [id number] Admission: 10/09/19 Attend Phys: Sunil Servin MD Discharge: Date of : 39 Report #: [id number] somewhat increased fluid throughout. LUNGS: Scattered coarse breath sounds. HEART: Distant, tachycardic. I do not appreciate a murmur. ABDOMEN: There are no peritoneal signs, soft. GENITOURINARY: Deferred. RECTAL: Deferred. LABORATORY DATA: Prealbumin of 11.5. Most recent CBC: White count of 14.4, H and H 14.6 and 46.2, platelets of 200. Protime 21.5, INR of 2.2. TSH of 0.815, free T4 of 1.04. Lactic acid of 1.7. Sodium 151, potassium 4.3, chloride 113, bicarbonate is 32, anion gap of 6, BUN and creatinine 24 and 1.6, glucose of 161. LFTs unremarkable. Albumin of 2.6, total protein of 6.7. Estimated GFR of 31. Chest x-ray, extensive left mid and lower lobe infiltrate. ASSESSMENT: Pneumonitis, complicated by respiratory failure in patient with a significant stroke. At this point, seemingly has deficits. We will continue the empiric broad-spectrum therapy. Remains very critically ill at this point. Noted their family is in discussions may not want really aggressive measures at this point given her diminished prognosis. We will follow. <ELECTRONICALLY SIGNED> By: Buddy Carcamo MD 10/16/19 [id number] Carcamo MD /nt
--- NOTE | 2019-10-16 11:16 | NUR ---
ICU rounds: Pt DNR status updated. PICC and TPN today. Pt family and team reassessing plan of care tomorrow pending appropriateness and decision regarding dc planning for SNF vs hospice. SW/CM to continue to follow to assist with safe dc planning.
--- NOTE | 2019-10-16 14:53 | NUR ---
RIGHT BASILIC VESSEL ACCESSED FOR 5 TONGAN TRIPLE PICC. LINE PRE-TRIMMED TO 44 CM AND ATTEMPTED TO ADVANCE TO THE DISTAL SVC BUT UNABLE TO ADVANCE PAST THE 22 CM DARRIN. LINE PULLED BACK AND READVANCED SEVERAL TIMES BUT RESISTANCE MET AT THE 22CM DARRIN. LINE REMOVED AND PRESSURE HELD WITH PRESSURE DRESSING APPLIED. LEFT CEPHALIC VESSEL ACCESSED FOR 5 TONGAN TRIPLE PICC. LINE PRE-TRIMMED TO 43CM AND ADVANCED TO THE ZERO DARRIN WITH NO RESISTANCE MET. UPPER ARM CIRCUMFERENCE ABOVE INSERTION SITE= 15 1/5". SHERLOCK MAGNET AND 3CG UNABLE TO CONFIRM TIP TERMINATION DUE TO A-FIB. POST-PROCEDURE CXR CHOWS TIP TERMINATES AT THE CAVOATRIAL JUNCTION. GUIDEWIRE REOMVED, LINE FLUSHED, AND INSERTION SITE DRESSED. REPORT GIVEN TO RAINA PADRON.
--- NOTE | 2019-10-16 16:37 | CON ---
[address] [address] CONSULTATION Name: DAXA MARIE Trevor Room: [address] IN M.R.#: [id number] Admission: 10/09/19 Attend Phys: Sunil Servin MD Discharge: Date of : 39 Report #: [id number] THIS REPORT FOR: //name// CC: Pj Servin DATE OF SERVICE: 10/15/2019 NEPHROLOGY CONSULTATION The patient in ICU, bed 3 at [facility]. I am asked to see this 79-year-old female at the request of Dr. Barber for hypernatremia and acute kidney injury. HISTORY OF PRESENT ILLNESS: The patient was admitted to [facility] on 10/09 of this year with left facial droop, headaches and decreased vision. She had decreased vision in her left eye, accompanied with nausea and vomiting. She was found to have an acute CVA, dysphagia and dehydration. She has a history of chronic AFib and is on chronic anticoagulation. She also carried a history of hypertension and pulmonary edema. She also has aspiration pneumonia. The patient was on the rehab unit, but her medical condition declined. She had some aspiration. She needed airway protection and needed transfer to the medical floor. PAST MEDICAL HISTORY: Hypertension, AFib, CHF and arthritis. FAMILY HISTORY: Noncontributory at her age. SOCIAL HISTORY: No tobacco, no alcohol, no recreational drugs. Very devoted family is at the bedside. ALLERGIES: ADHESIVE TAPE, GABAPENTIN AND SULFA. MEDICATIONS: Present in-hospital medications show that she is on famotidine 20 mg IV daily, vancomycin IV piggyback daily, metoprolol 50 mg per tube every 12 hours, diltiazem 30 mg per tube every 6 hours. She is receiving some free water. At this time, just started her tube feed. She has had digoxin discontinued as well as metoprolol and the former dose discontinued in favor of present dose. She is on piperacillin IV piggyback and Niaspan daily 500 mg, Singulair 10 mg daily, lidocaine patch topically daily, aspirin 81 mg daily, ascorbic acid, vitamin C 500 mg daily, senna 1 tablet at bedtime, hydralazine 50 mg q.6 hours p.r.n. and other p.r.n. meds including acetaminophen, melatonin, hydrocodone [place] [address] CONSULTATION Name: DAXA MARIE Room: [address]#: [id number] Admission: 10/09/19 Attend Phys: Sunil Servin MD Discharge: Date of : 39 Report #: [id number] REVIEW OF SYSTEMS: Cannot be provided by the patient. She is quite sleepy and is presently on BiPAP and does barely open her eyes to exam. PHYSICAL EXAMINATION: VITAL SIGNS: She has a temperature of 36.9 axillary. She has a heart rate in the 100 range. Respirations are 20, BP presently is 118/74. Her intake and output 1810 in, 500 out. HEENT: Pupils do react to light. NECK: Supple. CHEST: Shows some diminished breathe sounds and rhonchi. She has some upper airway noises as well. HEART: Irregular rhythm. No rubs, no gallops. ABDOMEN: Obese, soft, nontender, positive bowel sounds. EXTREMITIES: Show no edema, soft calves. NEUROLOGIC: No new focal or acute changes. She has had her recent CVA. LABORATORY DATA: Shows a white count of 14,400, hemoglobin 14.6, hematocrit 46.2, platelets 200,000. ESR was 30 on 10/10. Recent blood gas; pH 7.38, pCO2 of 41, pO2 of 76. This is on BiPAP at 50% FiO2. Coags show a PT of 14.7, INR 1.5. Chemistries show sodium up to 151. It has progressively increased from 140 on admission, it reached 151 on the , down to 148 yesterday and 151 today. Potassium is 4.3, chloride 113, CO2 of 32, BUN and creatinine 24 and 1.6. Her creatinine level was 1.2 on admission and did go down to 1.0 yesterday. Glucose is 161. Estimated GFR 31. Hemoglobin A1c 6.2 on admission. Recent calcium 8.9. Total bilirubin and liver function studies unremarkable. Albumin 2.6, magnesium on admission 1.8. IMAGING STUDIES: Including a head CT done today shows known cerebellar and medial occipital lobe infarcts. No evidence of mass effect or definite hemorrhage. Chest x-ray done today showed a nasogastric tube in stomach with side hole near the GE junction, development of left mid and lower lung infiltrate, fairly extensive. An abdominal x-ray done today showed some gaseous distention of the bowel and lower abdomen and pelvis and NG tube in the stomach, recommended advancement. IMPRESSION: 1. Acute kidney injury, likely related to diminished renal perfusion and fluid shifts. In addition, blood pressure has been a bit variable and she has been on IV vancomycin, although I do not see any levels yet at present. She is also on piperacillin. 2. Hypernatremia, likely related to free water deficit. Urine is quite concentrated appearing as well. 3. Urinary retention. Oconnell catheter is in place. 4. Escherichia coli urinary tract infection. 5. Reason for admission was cerebrovascular accident. She is being followed by Neurology. Her cerebrovascular accident is thought to be extensive and there [facility] [address] [place] [address] CONSULTATION Name: DAXA MARIE Room: [address] ADM IN .R.#: [id number] Admission: 10/09/19 Attend Phys: Sunil Servin MD Discharge: Date of : 39 Report #: [id number] are infarcts noted on her imaging studies. 6. Respiratory failure, on BiPAP. 7. Atrial fibrillation with rapid ventricular response, treated. 8. Osteoarthritis. 9. History of prior congestive heart failure. PLAN: I have altered her fluids such that she is receiving D5W instead of her prior solution. We will continue free water per tube. We will follow labs closely. Further recommendations to follow based on above; I discussed this with her family. <ELECTRONICALLY SIGNED> By: Arely Mcguire MD 10/16/19 1637 [id number] Mcguire MD /nt
[2019-10-17] VITALS (12 sets, daily range): BP systolic 150–180; BP diastolic 78–106
[2019-10-17 04:34] LABS: ABSOLUTE EOSINOPHILS 0.1 thou/uL (0.0-0.7); ABSOLUTE LYMPHOCYTES 1.2 thou/uL (0.8-5.3); ABSOLUTE MONOCYTES 0.8 thou/uL (0.0-1.2); ABSOLUTE NEUTROPHILS 6.1 thou/uL (1.6-8.1); BASOPHILS 0.4 %; EOSINOPHILS 1.5 %; HEMATOCRIT 36.8 % (37.0-47.0); HEMOGLOBIN 12.3 gm/dL (12.0-15.0); LYMPHOCYTES 14.3 %; MCH 32.8 pg (26.0-34.0); MCHC 33.3 g/dL (28.0-37.0); MCV 98.3 fL (80.0-100.0); MONOCYTES 9.5 %; NUCLEATED RBCS 0 /100WBC; PLATELET COUNT* 175 thou/uL (150-400); POLYS 74.3 %; RBC 3.74 mil/uL (4.20-5.00); RDW-CV 13.2 % (10.5-14.5); WBC 8.2 thou/uL (4.0-11.0)
--- NOTE | 2019-10-17 04:52 | NUR ---
VITALS STABLE, AFEBRILE. PT WAS MORE LUCID AT THE BEGINNING OF SHIFT, INCREASINGLY CONFUSED THE NIGHT WENT BY. GETS VERY AGITATED, PULLS ON LINES. SLEPT WELL AFTER MEDS, COMFORTABLE ON BIPAP. BMX2. Q2 TURNS FOR SKIN INTEGRITY. UNABLE TO USE CALL LIGHT AT THIS TIME.
[2019-10-17 04:53] LABS: ALBUMIN 2.2 g/dL (3.4-5.0); CALCIUM 7.8 mg/dL (8.5-10.1); POTASSIUM 3.5 mmol/L (3.5-5.1); TOTAL BILIRUBIN 0.5 mg/dL (<0.1-1.0); TOTAL PROTEIN 5.6 g/dL (6.4-8.2)
[2019-10-17 05:52] LABS: PREALBUMIN 10.9 mg/dL (18.0-35.7)
--- NOTE | 2019-10-17 08:23 | NUR ---
LEFT RING REMOVED FROM WEDDING FINGER WITH LUBRICANT DUE TO SWELLING. GIVEN TO DAUGHTER TO TAKE HOME.
--- NOTE | 2019-10-17 11:06 | NUR ---
PATIENT NOW MED SURG STATUS AND COMFORT CARE MEASURES IMPLEMENTED. FAMILY AT BEDSIDE AT THIS TIME. VITALS STABLE. MORIPHINE GIVEN FOR AIR HUNGER AND SCOPOLAMINE PATCH APPLIED TO BACK OF EAR. ALL QUESTIONS ANSWERED AT THIS TIME. BED IN LOWEST POSITON, CALL LIGHT IN REACH, WILL CONTINUE TO MONITOR.
--- NOTE | 2019-10-17 11:07 | NUR ---
ICU rounds: TPN. Vitals stable. On 6L oxygen. Cardizem gtt. Dr discussed dispo with family, family in agreement with comfort care, comfort care initiated, Pt to move out of ICU. Pt dc back to LTC in a few days if Pt remains stable, with hospice.
--- NOTE | 2019-10-17 15:54 | NUR ---
REPORT CALLED TO EZ PADRON. ALL QUESTIONS ANSWERED. PATIENT TRANSFERED TO ROOM 304 BY BED WITH NURSING STAFF. FAMILY PRESENT AT TIME OF TRANSFER. ALL BELONGINGS, MEDICATION AND CHART SENT WITH PATIENT.
--- NOTE | 2019-10-17 17:07 | NUR ---
PATIENT TRANSFERRED FROM ICU AT 1600. REPORT RECEIVED FORM VITO ASIF. PATIENT NON RESPONSIVE. COMFORT CARE. TURN Q2. MORPHINE GIVEN FOR COMFORT X 1 THIS SHIFT. LOTS OF FAMILY AT BESIDE. MALLORY IN PLACE WITH DARK YELLOW URINE.
--- NOTE | 2019-10-18 06:16 | NUR ---
PATIENT ARRIVED FROM ER VIA CART TO ROOM 305; SON AT BEDSIDE. PT C/O DIFFICULTY BREATHING EARLIER IN THE DAY. PT IS NOW ON O2 @ 2 LITERS PER NASAL CANNULA. PT UP TO BSC WITH STANDBY TO VOID. URINE CLEAR, YELLOW. PT DENIES PAIN. PT HAS IV IN RT AC. PT WEARS HEARING AID IN LT EAR BUT SON SAID IT IS BROKEN; PT VERY SAXMAN. PT WITH CONGESTED COUGH. PT ORIENTED TO ROOM/POLICIES AND VERBALIZES UNDERSTANDING. FREQUENTLY USED ITEMS AND CALL LIGHT WITHIN REACH. SIDERAILS UPX4 PER SON'S REQUEST AND BED ALARM ON. WILL CONTINUE TO MONITOR.
--- NOTE | 2019-10-18 06:24 | NUR ---
PATIENT ON COMFORT CARE. PT HAS BEEN NONRESPONSIVE WITH IRREGULAR BREATHS. PT HAS COURSE LUNG SOUNDS; ON O2 @ 4 LITERS PER NASAL CANNULA. FAMILY IS AT BEDSIDE AND REQUESTING PT NOT BE TURNED AT THIS TIME SHE IS COMFORTABLE. MORPHINE 4MG IV GIVEN X2 DURING THIS SHIFT. FREQUENT OBSERVATIONS MADE. FAMILY ENCOURAGED TO LET US KNOW IF THEY NEED ASSISTANCE. WILL CONTINUE TO MONITOR.
[2019-10-18 08:30] VITALS: BP 98/47
--- NOTE | 2019-10-18 19:11 | NUR ---
PATIENT AT 1725. FAMILY AT BEDSIDE. CON, DR CUBA, NURSING [facility] NOTIFIED. AWAITING HOME AT THIS TIME.
--- NOTE | 2019-10-22 19:22 | CON ---
[address] [address] CONSULTATION Name: DAXA MARIE Room: [address] IN M.R.#: [id number] Admission: 10/09/19 Attend Phys: Sunil Servin MD Discharge: 10/18/19 Date of : 39 Report #: [id number] THIS REPORT FOR: //name// CC: Pj Coffey [place] Sunil Servin MD DATE OF SERVICE: 10/13/2019 REFERRING PHYSICIAN: Sunil Servin MD REASON FOR CONSULTATION: Evaluate for possible PEG tube placement. IMPRESSION: 1. Oropharyngeal dysphagia with need for possible PEG tube placement. 2. Status post recent cerebrovascular accident with recurrent cerebrovascular accidents in the past. 3. Chronic anticoagulation with a need to have a decent INR for us to proceed with endoscopic evaluation. RECOMMENDATIONS: Once the patient becomes hemodynamically stable and is able to get her INR down to less than 1.5, I believe it is reasonable for us to proceed with an upper endoscopy and possible PEG tube placement early next week. I have discussed these plans with the patient's daughter who discussed this with her mother and everyone is in agreement with the same. HISTORY OF PRESENT ILLNESS: The patient is an 79-year-old white female, resident of [place], who presented to the Emergency Room on 10/09/2019 with headaches, decreased vision in her eye and some other issues and was found to have another stroke. This is despite the fact that she has chronic atrial fibrillation, is on chronic anticoagulation. She recently failed a video swallow study and her level of mentation is decreased. Her INR was at goal and we were asked to see her for possible gastrostomy tube placement after which she can potentially look at going through some speech therapy through speech pathology to help regain her ability to swallow. We were asked to see her for possible gastrostomy tube placement. Her daughter states she has no history of any problems related to her upper or lower GI tract. They cannot recall whether she has had any endoscopic studies in the past. ALLERGIES: ADHESIVE TAPE, GABAPENTIN AND SULFA. MEDICATIONS: Upon admission include furosemide, benazepril, Fosamax, metoprolol, Lidoderm, diltiazem, Tylenol, MiraLax, magnesium, ascorbic acid, [place] [address] CONSULTATION Name: DAXA MARIE Room: [address]#: [id number] Admission: 10/09/19 Attend Phys: Sunil Servin MD Discharge: 10/18/19 Date of : 39 Report #: [id number] hydrocodone with acetaminophen, warfarin, ipratropium bromide and Singulair. PAST MEDICAL HISTORY: Significant for hypertension, osteoporosis, problem with chronic constipation. She has problem with chronic pain. She has atrial fibrillation with recurrent strokes. She has history of CHF as well. SOCIAL HISTORY: The patient does not smoke or drink. FAMILY HISTORY: Negative. PHYSICAL EXAMINATION: GENERAL: Revealed her to be very lethargic. CARDIOPULMONARY: Revealed irregular rate and rhythm. LUNGS: Clear. ABDOMEN: Soft and not tender. No rebound or guarding noted. LABORATORY DATA: From admission revealed a white count of 13.0, hemoglobin 14.2, platelet count 293,000, MCV is 96.8 and RDW 13.7. Her INR on admission was 2.3. Sodium 140, potassium 4.4, chloride 101, bicarbonate 33, BUN is 31, creatinine 1.2. Her GFR is 43. Total bilirubin 0.5, alkaline phosphatase 93, AST 20, ALT 25. Her albumin was 3.5. DISCUSSION: At the present time, the patient appears to be an acceptable candidate to undergo endoscopic evaluation. We will reassess her next week once her INR is down to less than 1.5, to determine whether or not she is a candidate for procedure after EGD and PEG tube placement. We will follow while in the hospital. <ELECTRONICALLY SIGNED> By: Evangelista Florence DO 10/22/191921 [id number] Florence DO /nt
== END 2019-10-18 17:25 | DRG 871 ==
LOC: M.ERS 12:45 → M.2W 14:04 → M.3W 14:04 → M.TBA-ER 14:04 → M.2W 16:50 → M.ICU 10-15 02:16 → M.3W 10-17 15:50
PROVIDERS: Emergency Medicine; Family Medicine; Internal Medicine; Pediatrics; Psychiatry & Neurology Neurology; ADMIT Family Medicine
PROC: 5A09457 Assistance with Respiratory Ventilation, 24-96 Consecutive Hours, Continuous Positive Airway Pressure (ICD-10-PCS; principal; 2019-10-14)
PROC: 5A09357 Assistance with Respiratory Ventilation, Less than 24 Consecutive Hours, Continuous Positive Airway Pressure (ICD-10-PCS; 2019-10-17)
DX: A41.9 Sepsis, unspecified organism (principal); I63.9 Cerebral infarction, unspecified; J69.0 Pneumonitis due to inhalation of food and vomit; J96.01 Acute respiratory failure with hypoxia; I50.32 Chronic diastolic (congestive) heart failure; N39.0 Urinary tract infection, site not specified; I48.21 Permanent atrial fibrillation; I42.9 Cardiomyopathy, unspecified; I48.20 Chronic atrial fibrillation, unspecified; N17.9 Acute kidney failure, unspecified; E87.0 Hyperosmolality and hypernatremia; G93.40 Encephalopathy, unspecified; E46 Unspecified protein-calorie malnutrition; I11.0 Hypertensive heart disease with heart failure; M19.90 Unspecified osteoarthritis, unspecified site; E66.9 Obesity, unspecified; Z68.32 Body mass index [BMI] 32.0-32.9, adult; E78.5 Hyperlipidemia, unspecified; E86.0 Dehydration; R33.9 Retention of urine, unspecified; B96.20 Unspecified Escherichia coli [E. coli] as the cause of diseases classified elsewhere; R47.02 Dysphasia; R47.1 Dysarthria and anarthria; R13.12 Dysphagia, oropharyngeal phase; Z66 Do not resuscitate; Z51.5 Encounter for palliative care; Z79.01 Long term (current) use of anticoagulants; Z88.2 Allergy status to sulfonamides; Z88.8 Allergy status to other drugs, medicaments and biological substances; Z91.041 Radiographic dye allergy status; Z87.81 Personal history of (healed) traumatic fracture